=== PATIENT | female | born 1975 | race Caucasian/White ===

== ENCOUNTER 2024-10-01 15:43 | Emergency (ER) | payer OTHER, SELFPAY ==
[2024-10-01 15:47] VITALS: BP 163/88; PULSE 90; TEMP 36.5; O2SAT 96; BMI 26.6
--- NOTE | 2024-10-01 17:10 | ED.GENADUL1 ---
HPI HPI - General Adult General Chief complaint: Extremity Injury, Lower Stated complaint: ANKLE INJURY Time Seen by Provider: 10/01/24 16:17 Source: patient Mode of arrival: walk-in History of Present Illness HPI narrative: 49-year-old female presents here chief complaint of right ankle injury. She states she was wearing high clogs yesterday twisted her ankle. Has pain on the lateral aspect. Minimal soft tissue swelling is noted. She states she has had some spasming and pain in her ankle and foot over the last 24 hours. She is here for evaluation. Said she was at urgent care and they sent her here for x-rays. Patient said no previous fracture to this extremity. Related Data Allergies Allergy/AdvReac Type Severity Reaction Status Date / Time Penicillins Allergy Severe Rash Verified 10/01/24 15:50 acetaminophen (From Percocet) AdvReac Severe Hallucinati Verified 10/01/24 15:54 ng oxycodone (From Percocet) AdvReac Severe Hallucinati Verified 10/01/24 15:54 ng Opioid HPI Opioid Management Most Recent Opioid Data: Last Pain Scale 4 Today, 15:50 Review of Systems ROS Status of ROS 10 or more systems reviewed and unremarkable except as noted in history and below PFSH PFSH Social History Little interest or pleasure in doing things: not at all Feeling down, depressed, or hopeless: not at all Exam Narrative Exam Narrative: All Systems are negative except as noted/marked.All systems reviewed and otherwise negative Nurses note and vital signs reviewed and patient is not hypoxic. General: The patient appears well and in no apparent distress. Patient is resting comfortably on cart. Skin: Warm, dry, no pallor noted. There is no rash noted. Head: Normocephalic, atraumatic Eye: Normal conjunctiva, no drainage, EOMI. PERRL Ears, Nose, Mouth, and Throat: oral mucosa is moist. Nares patent. Mouth without vesicles. Ear canals patent. Tm's without Erythema Musculoskeletal: right lateral ankle pain and minimal soft tissue swelling. neurovasculalry intact. Neurological: A&O x4, normal speech Psychiatric: Cooperative Constitutional Vital Signs, click to edit/add: Last Vital Signs Temp 97.7 F 10/01/24 15:47 Pulse 90 10/01/24 15:47 Resp 18 10/01/24 15:47 BP 163/88 H 10/01/24 15:47 Pulse Ox 96 10/01/24 15:47 O2 Del Method Room Air 10/01/24 15:47 Course Vital Signs Vital signs: Vital Signs Temperature 97.7 F 10/01/24 15:47 Pulse Rate 90 10/01/24 15:47 Respiratory Rate 18 10/01/24 15:47 Blood Pressure 163/88 H 10/01/24 15:47 Pulse Oximetry 96 10/01/24 15:47 Oxygen Delivery Method Room Air 10/01/24 15:47 Temperature 97.7 F 10/01/24 15:47 Pulse Rate 90 10/01/24 15:47 Respiratory Rate 18 10/01/24 15:47 Blood Pressure 163/88 H 10/01/24 15:47 Pulse Oximetry 96 10/01/24 15:47 Oxygen Delivery Method Room Air 10/01/24 15:47 Medical Decision Making MDM Narrative Medical decision making narrative: 49-year-old female presents here chief complaint of right ankle injury. She states she was wearing high clogs yesterday twisted her ankle. Has pain on the lateral aspect. Minimal soft tissue swelling is noted. She states she has had some spasming and pain in her ankle and foot over the last 24 hours. She is here for evaluation. Said she was at urgent care and they sent her here for x-rays. Patient said no previous fracture to this extremity. Presented right ankle injury. Right foot and ankle x-rays did not show any acute fractures per my interpretation. Patient will be placed in Rob wrap and air splint applied by nursing staff. Extremity neurovascular intact for and after application. She will follow-up with orthopedics on October 04 at 12:30 PM. Differential Diagnosis Differential Diagnosis: sprain, fracture Medical Records Medical records reviewed: Yes I reviewed the patient's medical records Discharge Plan Discharge Chief Complaint: Extremity Injury, Lower Clinical Impression: Ankle sprain and strain Patient Disposition: Home, Self-Care Time of Disposition Decision: 17:09 Condition: Good Print Language: Tristanian Instructions: Ankle Sprain (ED), P.R.I.C.E. Treatment (ED) Referrals: Marin Gan [Primary Care Provider] - 1 week Odilon Joyner MD [Physician, Orthopedics] - 10/04/24 12:30 pm
[2024-10-01] MEDS: IBUPROFEN 400 MG TABLET 800 MG PO (17:23)
== END 2024-10-01 17:41 | disposition home or self-care (01) ==
PROVIDERS: Emergency Provider Emergency Medicine; PCP Family Medicine
DX: S93.401A Sprain of unspecified ligament of right ankle, initial encounter (principal); S96.911A Strain of unspecified muscle and tendon at ankle and foot level, right foot, initial encounter; X50.1XXA Overexertion from prolonged static or awkward postures, initial encounter
CPT/HCPCS: 73610; 73630; 99283